=== PATIENT | female | born 1980 | race American Indian/Alaskan Native ===

== ENCOUNTER 2020-07-08 11:03 | Emergency (ER) | payer SELFPAY ==
[2020-07-08 11:08] VITALS: BP 138/86
[2020-07-08] MEDS ORDERED: HYDROcodone/ACETAMINOPHEN 5-325 MG TAB PO ONE (11:12)
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
== END 2020-07-08 11:36 | disposition home or self-care (01) ==
LOC: ED 11:03
DX: H66.92 Otitis media, unspecified, left ear (principal); K21.9 Gastro-esophageal reflux disease without esophagitis
CPT/HCPCS: 99282

== ENCOUNTER 2020-07-12 08:53 | Emergency (ER) | payer SELFPAY ==
[2020-07-12 09:05] VITALS: BP 149/85
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
== END 2020-07-12 13:07 | disposition home or self-care (01) ==
LOC: ED 08:53
DX: H60.92 Unspecified otitis externa, left ear (principal); K21.9 Gastro-esophageal reflux disease without esophagitis; Z79.899 Other long term (current) drug therapy; Z98.890 Other specified postprocedural states
CPT/HCPCS: 99281